=== PATIENT | female | born 1965 | race African-American/Black ===

== ENCOUNTER 2020-05-08 13:53 | Outpatient (CLI) | payer OTHER ==
--- NOTE | 2020-05-09 09:00 | MMO ---
Bilateral MAMMO Bilat Screen [facility]. CLINICAL HISTORY: Patient is 54 years old and is seen for screening. The patient has no family history of breast cancer. The patient has no personal history of cancer. VIEWS: The views performed were: bilateral craniocaudal with tomosynthesis and bilateral mediolateral oblique with tomosynthesis. FILMS COMPARED: The present examination has been compared to a prior imaging study performed at [facility] on 09/05/2014. This study has been interpreted with the assistance of computer-aided detection. MAMMOGRAM FINDINGS: There are scattered fibroglandular densities. There are no suspicious masses, suspicious calcifications, or new areas of architectural distortion. IMPRESSION: THERE IS NO MAMMOGRAPHIC EVIDENCE OF MALIGNANCY. A ROUTINE FOLLOW-UP MAMMOGRAM IN 1 YEAR IS RECOMMENDED. THE RESULTS OF THIS EXAM WERE SENT TO THE PATIENT. ACR BI-RADS Category 1 - Negative MAMMOGRAPHY NOTE: 1. A negative mammogram report should not delay a biopsy if a dominant of clinically suspicious mass is present. 2. Approximately 10% to 15% of breast cancers are not detected by mammography. 3. Adenosis and dense breasts may obscure an underlying neoplasm. Reported by: GARY REEDER MD Electonically Signed: [id number]
== END 2020-05-08 13:54 | disposition home or self-care (01) ==
LOC: BICMAMMO 13:53
PROVIDERS: ATTEND Family Medicine
DX: Z12.31 Encounter for screening mammogram for malignant neoplasm of breast (principal)
CPT/HCPCS: 77063; 77067

== ENCOUNTER 2021-12-18 14:41 | Emergency (ER) | payer OTHER, SELFPAY | END 2021-12-18 15:48 | disposition home or self-care (01) | LOC: ERS 14:41 | DX: S00.33XA Contusion of nose, initial encounter (principal); S80.211A Abrasion, right knee, initial encounter; S40.211A Abrasion of right shoulder, initial encounter; F17.210 Nicotine dependence, cigarettes, uncomplicated; W01.198A Fall on same level from slipping, tripping and stumbling with subsequent striking against other object, initial encounter | CPT/HCPCS: 70160 ==

== ENCOUNTER 2024-07-03 11:39 | Emergency (ER) | payer SELFPAY ==
[2024-07-03 12:03] LABS: #Basophils 0.03 10x3/uL (0.0-0.2); %Basophils 0.5 % (0.0-1.0); %Eosinophils 2.4 % (0.0-10.0); %Lymphocytes 31.2 % (21.0-51.0); %Neutrophils 59.7 % (42.0-75.0); Hematocrit 42.8 % (36.0-47.0); Hemoglobin 13.8 g/dL (12.0-16.0); Mean Corpuscular HGB CONC 32.2 g/dL (32.0-36.0); Mean Corpuscular Hemoglobin 27.7 pg (27.0-31.0); Mean Corpuscular Volume 85.9 fL (78.0-98.0); Mean Platelet Volume 10.2 fL (7.4-10.4); Platelet Count 274 10x3/uL (130-400); RBC Distribution Width 13.8 % (11.5-14.5); Red Blood Cell (RBC) Count 4.98 mill/uL (4.20-5.40)
[2024-07-03 12:34] LABS: ALT (SGPT) 33 U/L (8-55); AST (SGOT) 24 U/L (5-34); Albumin 3.3 g/dL (3.5-5.0); Alkaline Phosphatase 68 U/L (40-110); Anion Gap 15 mmol/L (10-20); BUN (Urea Nitrogen) 10 mg/dL (9.8-20.1); Bilirubin, Total 0.3 mg/dL (0.2-1.2); Calc. Creatinine Clearance 0 mL/min (70-130); Calcium 9.6 mg/dL (7.8-10.44); Carbon Dioxide 26 mmol/L (22-29); Chloride 105 mmol/L (98-107); Estimated GFR 96; Globulin 4.6 g/dL (2.4-3.5); Glucose 140 mg/dL (70-105); Potassium 3.6 mmol/L (3.5-5.1); Protein, Total 7.9 g/dL (6.0-8.3); Sodium 142 mmol/L (136-145)
[2024-07-03 12:39] LABS: Troponin I Less than 0.010 ng/mL (< 0.028)
== END 2024-07-03 13:32 | disposition home or self-care (01) ==
LOC: ERS 11:39
DX: R91.8 Other nonspecific abnormal finding of lung field (principal); F17.210 Nicotine dependence, cigarettes, uncomplicated
CPT/HCPCS: 36415; 71045; 71275; 80053; 83605; 83880; 84484; 85025; 93005

== ENCOUNTER → 2024-08-26 | Day surgery (SDC) | payer OTHER ==
[~2024-08-26] MED LIST: Lidocaine 1% w/Epinephrine 1:100K 20 ML VIAL ONE; Sodium Bicarbonate 2.5 MEQ/5 ML SDV ONE
== END ==
LOC: ULT 07:20
PROVIDERS: ATTEND Internal Medicine
PROC: 07B23ZX Excision of Left Neck Lymphatic, Percutaneous Approach, Diagnostic (ICD-10-PCS; principal; 2024-08-26)
DX: C77.0 Secondary and unspecified malignant neoplasm of lymph nodes of head, face and neck (principal); R91.8 Other nonspecific abnormal finding of lung field; J44.9 Chronic obstructive pulmonary disease, unspecified; K21.9 Gastro-esophageal reflux disease without esophagitis; F17.200 Nicotine dependence, unspecified, uncomplicated; Z90.710 Acquired absence of both cervix and uterus; Z79.1 Long term (current) use of non-steroidal anti-inflammatories (NSAID); Z79.51 Long term (current) use of inhaled steroids; Z79.899 Other long term (current) drug therapy
CPT/HCPCS: 20206; 76942; 88305; 88333; 88334; 88341; 88342

== ENCOUNTER 2025-02-17 10:47 | Outpatient (CLI) | payer OTHER | END 2025-02-17 10:48 | disposition home or self-care (01) | LOC: SCSMRI 10:47 | PROVIDERS: ATTEND Internal Medicine | DX: C34.12 Malignant neoplasm of upper lobe, left bronchus or lung (principal); D50.8 Other iron deficiency anemias; C79.31 Secondary malignant neoplasm of brain; G93.6 Cerebral edema | CPT/HCPCS: 70553; 76376 ==

== ENCOUNTER 2025-02-27 08:00 | Outpatient (CLI) | payer OTHER | END 2025-02-27 08:01 | disposition home or self-care (01) | LOC: PET 08:00 | PROVIDERS: ATTEND Internal Medicine | DX: C34.12 Malignant neoplasm of upper lobe, left bronchus or lung (principal); R91.8 Other nonspecific abnormal finding of lung field; M85.88 Other specified disorders of bone density and structure, other site; R19.00 Intra-abdominal and pelvic swelling, mass and lump, unspecified site | CPT/HCPCS: 78815; A9552 ==

== ENCOUNTER 2025-03-08 07:54 | Outpatient (CLI) | payer OTHER | END 2025-03-08 07:55 | disposition home or self-care (01) | LOC: ULT 07:54 | PROVIDERS: ATTEND Radiology Radiation Oncology | DX: M79.89 Other specified soft tissue disorders (principal); C34.90 Malignant neoplasm of unspecified part of unspecified bronchus or lung; R59.0 Localized enlarged lymph nodes ==

== ENCOUNTER 2025-03-17 08:09 | Day surgery (SDC) | payer OTHER ==
[2025-03-17] MEDS ORDERED: Sodium Bicarbonate 2.5 MEQ/5 ML SDV ONE (08:23)
[2025-03-17] MEDS ORDERED: Lidocaine 1% PF 5 ML VIAL ONE (08:23)
== END 2025-03-17 10:33 | disposition home or self-care (01) ==
LOC: CT 08:09 → ULT 10:33
PROVIDERS: ATTEND Internal Medicine
PROC: 07B23ZX Excision of Left Neck Lymphatic, Percutaneous Approach, Diagnostic (ICD-10-PCS; principal; 2025-03-17)
DX: C77.0 Secondary and unspecified malignant neoplasm of lymph nodes of head, face and neck (principal); C34.12 Malignant neoplasm of upper lobe, left bronchus or lung; D50.8 Other iron deficiency anemias; Z90.710 Acquired absence of both cervix and uterus
CPT/HCPCS: 38505; 76942; 88305; 88333; 88334; 88341; 88342

== ENCOUNTER 2025-04-25 13:33 | Outpatient (CLI) | payer OTHER | END 2025-04-25 13:34 | disposition home or self-care (01) | LOC: SCSMRI 13:33 | PROVIDERS: ATTEND Internal Medicine | DX: C34.12 Malignant neoplasm of upper lobe, left bronchus or lung (principal); D50.8 Other iron deficiency anemias; C79.31 Secondary malignant neoplasm of brain | CPT/HCPCS: 70553; 76376 ==

== ENCOUNTER → 2025-05-01 | Outpatient (CLI) | payer OTHER | LOC: PET 11:45 | PROVIDERS: ATTEND Internal Medicine | DX: D50.8 Other iron deficiency anemias (principal); C34.12 Malignant neoplasm of upper lobe, left bronchus or lung | CPT/HCPCS: 78815; A9552 ==

== ENCOUNTER 2025-05-10 14:03 | Outpatient (CLI) | payer OTHER | END 2025-05-10 14:04 | disposition home or self-care (01) | LOC: ULT 14:03 | PROVIDERS: ATTEND Internal Medicine | DX: I82.622 Acute embolism and thrombosis of deep veins of left upper extremity (principal); C34.12 Malignant neoplasm of upper lobe, left bronchus or lung; D50.8 Other iron deficiency anemias; R59.0 Localized enlarged lymph nodes ==

== ENCOUNTER 2025-05-11 14:06 | Emergency (ER) | payer OTHER ==
[2025-05-11] MEDS ORDERED: HYDROcodone/Acetaminophen 10/325 mg Tablet ONE (14:53)
== END 2025-05-11 15:13 | disposition home or self-care (01) ==
LOC: ERS 14:06
DX: G89.3 Neoplasm related pain (acute) (chronic) (principal); F17.210 Nicotine dependence, cigarettes, uncomplicated
CPT/HCPCS: 99282

== ENCOUNTER 2025-05-18 13:32 | Outpatient (CLI) | payer OTHER | END 2025-05-18 13:33 | disposition home or self-care (01) | LOC: BICMAMMO 13:32 | PROVIDERS: ATTEND Family Medicine | DX: Z12.31 Encounter for screening mammogram for malignant neoplasm of breast (principal); Z85.118 Personal history of other malignant neoplasm of bronchus and lung | CPT/HCPCS: 77063; 77067 ==